=== PATIENT | male | born 1965 | race Hispanic/Latino ===

== ENCOUNTER 2018-05-04 18:10 | Inpatient (IN) | payer SELFPAY ==
[~2018-05-04 18:10] MED LIST: Dexamethasone 20 MG/5 ML VIAL ONE; Lidocaine 1% PF 5 ML VIAL ONE; Ondansetron PF 4 MG/2 ML Vial ONE; PHENYLEPHRINE-NS 100 MCG/ML 10 ML SYRINGE ONE; PROPOFOL 200 MG/20 ML VIAL ONE; Succinylcholine Chloride 20 MG/ML 10 ml SYRINGE FS ONE; ePHEDrine/0.9% NaCl/PF SYRINGE 50 mg/10 ml ONE
--- NOTE | 2018-05-04 19:17 | RAD ---
LEFT HAND THREE VIEWS: History: Injury to hand with pain. FINDINGS: Fractures involve the middle phalanx of the fourth and fifth fingers noted. Mild comminution of the m iddle phalanx of the fifth finger with an obliquely oriented mildly displaced fracture of the middle phalanx of the fifth finger. Degenerative changes. No other definite fracture. IMPRESSION: Fracture of the middle phalanges of the fourth and fifth fingers. POS: [facility]
[2018-05-04] MEDS ORDERED: Thrombin 5000 UNITS/5 ML VIAL ONE (20:00)
[2018-05-04] MEDS ORDERED: Bacitracin Zinc Ointment 30 gm TUBE ONE (20:00)
[2018-05-04] MEDS ORDERED: Sodium Chloride 0.9% 40 ML ONE (20:01)
[2018-05-04] MEDS ORDERED: Lidocaine 2% PF 5 ML VIAL ONE (20:13)
[2018-05-04] MEDS ORDERED: Heparin 10,000 UNITS/1 ML VIAL ONE (20:13)
[2018-05-04] MEDS ORDERED: Hetastarch 6% 500 ML 0 ML ONE (20:13)
[2018-05-04] MEDS ORDERED: CEFAZOLIN 1 GM VIAL ONE (20:18)
[2018-05-04] MEDS ORDERED: Gentamicin 80 MG/2 ML VIAL ONE (20:18)
[2018-05-04] MEDS ORDERED: Gentamicin Sulfate 80 MG in Premix Bag 1 BAG IVPB SCH (20:30)
[2018-05-04] MEDS ORDERED: CEFAZOLIN 2 GM/50 ML-DEXTROSE 2 GM in Premix Bag 1 BAG IVPB SCH (20:30)
[2018-05-04] MEDS ORDERED: Midazolam HCl 2 mg/2 ml Vial ONE (20:58)
[2018-05-04] MEDS ORDERED: HYDROmorphone 2 MG/ML VIAL ONE (21:01)
[2018-05-04] MEDS ORDERED: Fentanyl 250 MCG/5 ML VIAL ONE (21:01)
[2018-05-04] MEDS ORDERED: Bupivacaine PF 0.5% 30 ML VIAL ONE (21:28)
[2018-05-05] MEDS ORDERED: Ondansetron HCl/PF 4 MG/2 ML Vial IVP PRN (02:36)
[2018-05-05] MEDS ORDERED: Promethazine HCl 25 MG/ML VIAL IM PRN (02:36)
[2018-05-05] MEDS ORDERED: Promethazine HCl 25 MG/ML VIAL SLOW IVP PRN (02:36)
[2018-05-05] MEDS ORDERED: Milk Of Magnesia 30 ML UDCUP PO PRN (02:47)
[2018-05-05] MEDS ORDERED: Bisacodyl 10 MG SUPP PR PRN (02:47)
[2018-05-05] MEDS ORDERED: Ondansetron PF 4 MG/2 ML Vial IV PRN (02:47)
[2018-05-05] MEDS ORDERED: Fentanyl 100 MCG/2 ML VIAL ONE (02:54)
[2018-05-05] MEDS ORDERED: Communication Order-Pharmacy FS SCH (03:00)
[2018-05-05] MEDS ORDERED: Meperidine HCl/PF 25 MG/ML VIAL IM PRN (04:00)
[2018-05-05] MEDS ORDERED: Morphine 4 MG/ML VIAL ONE (04:13)
[2018-05-05 05:37] LABS: #Lymphocytes 0.7 thou/uL (1.20-3.40); #Monocytes 0.2 thou/uL (0.11-0.59); #Neutrophils 11.5 thou/uL (1.40-6.50); %Eosinophils 0.2 % (0.0-10.0); %Lymphocytes 5.3 % (21.0-51.0); %Neutrophils 92.6 % (42.0-75.0); Hemoglobin 13.6 g/dL (14.0-18.0); Mean Corpuscular HGB CONC 32.7 g/dL (32.0-36.0); Mean Corpuscular Hemoglobin 29.2 pg (27.0-31.0); Mean Corpuscular Volume 89.3 fL (78.0-98.0); Platelet Count 249 thou/uL (130-400); RBC Distribution Width 11.6 % (11.5-14.5); Red Blood Cell (RBC) Count 4.65 mill/uL (4.70-6.10); White Blood Cell (WBC) Count 12.5 thou/uL (4.8-10.8)
[2018-05-05] MEDS: Ketorolac Tromethamine 30 MG/ML VIAL IVP SCH ×4 (05:46→23:53)
--- NOTE | 2018-05-05 07:57 | OP ---
DATE OF PROCEDURE: Surgery began on the 05/04/2018 and finished on 05/05/2018. SURGEON: Dr. Graham Smith ANESTHESIA: General LMA technique, French Anesthesia augmented by 30 mL 0.5% Marcaine metacarpopha langeal joint level block, 20 given before surgery and 10 after. PREOPERATIVE DIAGNOSIS: 1. Right thumb 3 cm wound with open metacarpophalangeal joint and radial digital nerve laceration. 2. Right index finger 3 cm wound with nail bed laceration, nail damage, no fracture. 3. At the middle finger 1 open middle phalanx neck fraction, 100% extensor tendon laceration, zone 1 , complex wound. 4. Medial collateral ligament tear, partial and 3 cm wound. 5. Ring finger, middle phalanx fracture, wound with extensor tendon laceration, zone 1, digital nerv e laceration, digital artery laceration all radial. 6. The small finger, 1 wound with tendon, open middle phalanx fracture, tendon laceration, zone 2, 3 cm laceration. 7. Two centimeter right superior lip laceration. 8. One centimeter right nasal laceration. PROCEDURE PERFORMED: 1. The right thumb; 1) debridement of wound; 2) debridement of open joint; 3) neuroplasty, radial d igital nerve; 4) 3 cm wound closure. 2. At the left index finger; 1) debridement of wound; 2) nail bed repair; 3) 3 cm wound closure; 4) removal of nail. 3. At the left middle finger; 1) debridement of open middle phalanx fracture. 4. Open reduction internal fixation using K-wires middle phalanx fracture. 5. Debridement of wound, left middle finger. 6. Extensor tendon repair, left middle finger, zone 1. 7. Radial collateral ligaments repair. 8. Three centimeter wound closure complex. 9. At the ring finger, left; 1) debridement of material associated open fracture; 2) open reductio n internal fixation of middle phalanx fracture; 3) debridement of open joint; 4) extensor tendon re pair, zone 1; 5) digital nerve neuroplasty; 6) digital nerve repair with 8-0 Nurolon. 10. Small finger; 1) debridement material associated with open fracture; 2) repair common extensor tendon zone 2; 3) open reduction internal fixation small finger, middle phalanx fracture; 4) C-arm supervision. C-arm supervision is true for all of the above care and fractures. 11. Small finger wound closure, 3 cm. 12. Two centimeter superior lip laceration debridement. 13. Two centimeter superior lip laceration repair/ 14. One centimeter right nasal wound debridement. 15. One centimeter right nasal laceration repair. INDICATIONS: The patient involved in a saw related accident using a saw. He said he was not flor r with it and had not used it much before. He was initially seen in [place], evacuated here in the hopes that there would be definitive hand care available. PROCEDURE IN DETAIL: After successful general LMA technique, the limb was prepped and draped. The p atient had the time out done appropriately and had been counseled by Dr. Smith in the emergency ro om and timeout was done appropriately. Jimenez catheter was placed in anticipation of fracture of care being longer. TOURNIQUET TIME: 120 minutes total. ESTIMATED BLOOD LOSS: Blood loss was 50 mL. COMPLICATIONS: No complications. PROCEDURE IN DETAIL: Initially, we had 5 digits involved along with a facial laceration, so we deter mined to do stepwise progress as if he had a vascular and neurologic injury in each finger. For this reason, we approached each digit first by extending all the lacerations in Erum fashion and only e ntering into the neurovascular bundle area that appeared to be violated. We first opened the thumb l aceration another 1.5 cm in each direction, performed neuroplasty of the digital nerve, evaluated the flexor tendon which was intact, ____ stiff mechanism intact and saw that the patient had an open sherrill nt area only about 3-4 mm. We opened this enough to visualize the joint and debrided the joint using the same technique were used throughout, which is as follows. A.) Excisional; B) use of curet, ten otomy scissors, [place] blade, 11 blade knife, a small ____ and Titus's as a hand/finger type rongeur and with irrigation Pulsavac. The depth would all be into the joint and down to the bone and finally we found minimal soft tissue contamination. Thus, he was approached primarily for complete case. Once we had finished this type debridement and finished irrigation at the thumb, then we pursued the index finger. The index finger we extended his dorsal incision which began just distal to the nail b ed tip, it was approximately 3 cm long. It is circumferentially. Dissected down in this area where the laceration extended to the nail bed, so we removed the nail and visualized the nail bed which was repaired which was approximately 3-4 mm. Once all this was done, we debrided using the same techniq ue, we finished irrigation, we reapplied visualization. Since there was not any bony damage here, th en we went ahead and repaired the laceration 3 cm using 5-0 nylon, then we performed nailbed repair w ith a chromic suture. After we finished the debridement and had removed the nail. Attention was turned to the middle finger where here, we extended the incision, this time along the d orsal and radial direction, found the transverse fracture of the base of the middle phalanx neck whic h was about 2-3 mm deep impression fracture without displacement, had a chondral flap inside the join t that was loose which was irrigated, placed back and we would then using the same techniques, we fin ished the irrigation, we also saw a small violation of the radial collateral ligaments which we repai red at the same time, we did the extensor tendon. The joint was unstable because of the 100% extenso r tendon laceration that was so near, it was just over the joint surface, making it a type 1, so bef ore finishing the debridement technique described above, and had visualized all the structures, we us ed Prolene 4-0 for the extensor tendon repair after we had placed a small chondral fragment back in p lace, extended the joint to a +5 and then passed a 3.2 K-wire across the joint which then stabilized the intra-articular fragment, stabilized the joint for extensor tendon repair and since everything wa s now clean and had been debrided to the satisfaction with no contamination seen, we repaired the ext ensor mechanism here using the 3-0 Prolene as well as 1 suture in the collateral. We then had comple harpreet debridement of open fracture, and had excellent extensor tendon repair. We then turned attention to the ring finger. At the ring finger, where it was suspected based on exa m a neurological injury, we extended the patient's incision which was midlateral both dorsal, but we knew we had a fracture and extensor tendon laceration and palmar all staying on the same radial side of the finger. By doing the dissection, we then did a neuroplasty digital nerve, the patient had a d igital nerve laceration approximately 4 mm proximal to the trifurcation. Then, we isolated this, sep arated the artery and we had to use vascular techniques. We visualized the flexor tendon, it was int act. On the dorsal side, the patient had an extensor tendon laceration ring finger which was complet e involving just at the junction where the 2 tendons came together to form the terminal tendon making it a zone 1 laceration and so we opened the joint, since it was open, visualized it, debrided it usi ng the techniques listed above and then irrigated with normal saline, approximately 3 liters normal s caty with Pulsavac pressure inside. This was very clean ____ without any evidence of soft tissue co ntamination or particles, even a loop magnification and later even under microscope. We then realize d that here, the fracture was the most comminuted was a two-part fracture and multiple 3-part fractur es are 1 plane 4-part in the sagittal plane and had a subcaudal piece that was approximately 6 mm x 4 mm that was completely loose, so once we reduced it, keyed this fragment back in, it was best felt t hat a small plate could be utilized best to hold this fracture, so we placed a small 1-3 variable ang le handset plate, T-plate given us 4 cortices distal to the comminution, and 4 cortices proximal. Th ere was no gross motion after this. The entire construct was placed under the tender area, and then using a 4-0 Prolene we were able to close this in a buried [id number] simple interrupted pattern . The neuroplasty revealed that we would have to perform a digital nerve laceration procedure, but w e deemed that we would finish all soft tissue and bone work and tendon work in all digits before coby g back and doing any nerve procedures. We then addressed the small finger where we extended this primarily all dorsal incision, made a lacer ation 6 mm distal and approximately 1 cm proximal. The extensor tendon here was at the terminal tend on was 1/2 transversely cut, we lifted up that half, visualize the fracture, performed debridement as listed in other techniques for bone debridement during this procedure, the same principles and instr umentation. Then, we performed irrigation with 3 liters of normal saline and Pulsavac pressure and h ad a very clean bone and soft tissues without any evidence of gross contamination clinically or via m agnification. The patient then had the primarily frontal splint fracture reduced and placed 2 lag sc rew 1.5 across the fracture from the [employer] variable angle handset. Then, we were able to hold this , the patient had no malrotation here or at the ring finger. We then saw that the wound was clean, r epaired the terminal tendon with a buried [id number] 4-0 Prolene x4 sutures, and turned our atte ntion towards the neurovascular bundle. At this time, we had to release the tourniquet because the t ourniquet time had reached 120 minutes and did not reinflate. We evaluated back to the neurovascular bundle, isolated under magnification, the nerve, and then once a little resection 1 mm this side was accomplished, we then repaired the digital nerves 3 mm proximal to the trifurcation with excellent tr unk epineural techniques using 8-0 nylon. The patient then had hemostasis obtained in all digits, we then irrigated for a final 3 liters normal saline divided equally amongst all the injured digits. T hen we prepared for closure of the hand. This was accomplished using a 4-0 nylon interrupted simple pattern at all of the digits. The K-wire that had to be passed across the ring finger and long finge r to help repair the middle finger fracture as well as stabilize the middle finger and long finger di stal phalangeal joint because of the zone 1, repair was now cut slightly below the skin. There was n o complication in this region and all digits were pink. The patient then had bacitracin, Adaptic bettye lied to these wounds leaving the small finger in full extension DIP joint to protect it as well as ex tension that was involved with the DIP joint of the middle and ring finger due to the pinning and rep air. There was no undue swelling or other abnormality and this bulky dressing had a bulky hand chantelle rtments of the digit as well as an intrinsic plus position of the MP joints with dorsal block techniq ue. We turned our attention to the face where we realized these were through and through lacerations, had not been repaired in the emergency room, so we debrided these using the same technique with preparin g the sterile field with Betadine prep, used 6-0 Prolene to repair the lip where the laceration was a pproximately 2 cm on the upper lip and displaceable and we had multiple jagged 2-3 mm lacerations on the right nasal area, but near the nares there was a 1 cm laceration which we repaired also with 6-0 Prolene. The patient then left the operating room without evidence of anesthetic or operative compli cation.
[2018-05-05] MEDS: Vancomycin HCl 1 GM in Premix Bag 1 BAG IVPB SCH ×2 (08:10→20:41)
[2018-05-05] MEDS: Aspirin 81 mg Enteric Coated Tablet PO SCH ×2 (08:10→20:41)
--- NOTE | 2018-05-05 08:31 | RAD ---
LEFT FINGERS TWO VIEWS: History: 53-year-old male with history of ORIF left fourth and fifth fingers. Comparison: 05-04-18 FINDINGS: Two internal fixation screws have been placed stabilizing the middle phalanx of the fifth finger. Met al plate and screws are noted in place, stabilizing a comminuted fracture of the middle phalanx of th e fourth finger with improvement in position and alignment. IMPRESSION: ORIF right fourth and fifth fingers. POS: [facility]
[2018-05-05] MEDS ORDERED: TETANUS AND DIPHTHERIA TOX/PF 0.5 ML DISP.SYRIN IM SCH (09:00)
[2018-05-05] MEDS: Morphine 4 MG/ML VIAL SLOW IVP PRN (15:43)
[2018-05-06] MEDS: Ketorolac Tromethamine 30 MG/ML VIAL IVP SCH (05:35)
[2018-05-06] MEDS: Aspirin 81 mg Enteric Coated Tablet PO SCH (08:56)
[2018-05-06] MEDS: Vancomycin HCl 1 GM in Premix Bag 1 BAG IVPB SCH (08:56)
[2018-05-06] MEDS: Morphine 4 MG/ML VIAL SLOW IVP PRN (10:21)
[2018-05-06 15:57] VITALS: BP 162/79; TEMP 98.1
== END 2018-05-06 17:29 | disposition home or self-care (01) | DRG 41 ==
LOC: ERS 18:10 → SDC/OP 22:04 → SURG B 05-05 03:29
PROVIDERS: ADMIT Orthopaedic Surgery Hand Surgery; ATTEND Orthopaedic Surgery Hand Surgery
PROC: 01Q60ZZ Repair Radial Nerve, Open Approach (ICD-10-PCS; principal; 2018-05-05)
PROC: 01Q60ZZ Repair Radial Nerve, Open Approach (ICD-10-PCS; 2018-05-05)
PROC: 0RBU0ZZ Excision of Right Metacarpophalangeal Joint, Open Approach (ICD-10-PCS; 2018-05-05)
PROC: 0PST04Z Reposition Right Finger Phalanx with Internal Fixation Device, Open Approach (ICD-10-PCS; 2018-05-05)
PROC: 0PST04Z Reposition Right Finger Phalanx with Internal Fixation Device, Open Approach (ICD-10-PCS; 2018-05-05)
PROC: 0PST04Z Reposition Right Finger Phalanx with Internal Fixation Device, Open Approach (ICD-10-PCS; 2018-05-05)
PROC: 0HQQXZZ Repair Finger Nail, External Approach (ICD-10-PCS; 2018-05-05)
PROC: 0MQ70ZZ Repair Right Hand Bursa and Ligament, Open Approach (ICD-10-PCS; 2018-05-05)
PROC: 0LQ70ZZ Repair Right Hand Tendon, Open Approach (ICD-10-PCS; 2018-05-05)
PROC: 0LQ70ZZ Repair Right Hand Tendon, Open Approach (ICD-10-PCS; 2018-05-05)
PROC: 0CQ0XZZ Repair Upper Lip, External Approach (ICD-10-PCS; 2018-05-05)
PROC: 0HQ1XZZ Repair Face Skin, External Approach (ICD-10-PCS; 2018-05-05)
DX: S64.31XA Injury of digital nerve of right thumb, initial encounter (principal); S62.291B Other fracture of first metacarpal bone, right hand, initial encounter for open fracture; S62.622B Displaced fracture of middle phalanx of right middle finger, initial encounter for open fracture; S62.624B Displaced fracture of middle phalanx of right ring finger, initial encounter for open fracture; S62.626B Displaced fracture of middle phalanx of right little finger, initial encounter for open fracture; S66.322A Laceration of extensor muscle, fascia and tendon of right middle finger at wrist and hand level, initial encounter; S66.324A Laceration of extensor muscle, fascia and tendon of right ring finger at wrist and hand level, initial encounter; S66.326A Laceration of extensor muscle, fascia and tendon of right little finger at wrist and hand level, initial encounter; S65.514A Laceration of blood vessel of right ring finger, initial encounter; S01.511A Laceration without foreign body of lip, initial encounter; S01.21XA Laceration without foreign body of nose, initial encounter; S61.310A Laceration without foreign body of right index finger with damage to nail, initial encounter; S63.652A Sprain of metacarpophalangeal joint of right middle finger, initial encounter; S64.494A Injury of digital nerve of right ring finger, initial encounter; W31.2XXA Contact with powered woodworking and forming machines, initial encounter
CPT/HCPCS: 36415; 76001; 85025; C1713; J0131; J0690; J1100; J1170; J1580; J1644; J1885; J2001; J2175; J2250; J2270; J2405; J2704; J3010; J3370; J3490; S0020

== ENCOUNTER 2023-07-15 12:49 | Outpatient (CLI) | payer OTHER | END 2023-07-15 12:50 | disposition home or self-care (01) | LOC: BICMRI 12:49 | PROVIDERS: ATTEND Physician Assistant | DX: S83.511A Sprain of anterior cruciate ligament of right knee, initial encounter (principal); S83.411A Sprain of medial collateral ligament of right knee, initial encounter; S72.421A Displaced fracture of lateral condyle of right femur, initial encounter for closed fracture; S83.104A Unspecified dislocation of right knee, initial encounter ==